=== PATIENT | male | born 1955 | race Caucasian/White ===

== ENCOUNTER 2020-08-20 09:48 | Inpatient (IN) ==
[2020-08-20 10:05] LABS: Basophils # (auto) 0.03 K/uL (0-0.2); Basophils % (auto) 0.3 %; Eosinophils # (auto) 0.02 K/uL (0-0.5); Eosinophils % (auto) 0.2 %; Hematocrit (blood only) 43.7 % (42-52); Hemoglobin 15.9 g/dL (14.0-18.0); Immature Granulocytes # (auto) 0.03 K/uL (0.00-0.02); Immature Granulocytes % (auto) 0.3 %; Lymphocytes % (auto) 31.6 %; Mean Corpuscular Hemoglobin 35.5 pg (25-34); Mean Corpuscular Hgb Conc 36.4 g/dL (32-36); Mean Corpuscular Volume 97.5 fL (80-100); Mean Platelet Volume 11.1 fL (7.4-10.4); Monocytes # (auto) 1.26 K/uL (0.11-0.59); Monocytes % (auto) 11.4 %; Neutrophils # (auto) 6.25 K/uL (1.4-6.5); Neutrophils % (auto) 56.2 %; Platelet Count 283 K/uL (130-400); RDW Coefficient of Variation 13.2 % (11.5-14.5); RDW Standard Deviation 46.7 fL (36.4-46.3); Red Blood Count 4.48 M/uL (4.7-6.1); White Blood Count 11.09 K/uL (4.8-10.8)
[2020-08-20] MEDS ORDERED: MULTI-VITAMIN INFUSION 10 ML, THIAMINE HCL 100 MG, FOLIC ACID 1 MG in SODIUM CHLORIDE 0... IV ONE (10:06)
[2020-08-20] MEDS ORDERED: LORazepam 1 MG/2 ML VIAL IV STA (10:09)
--- NOTE | 2020-08-20 10:09 | Emergency Department Note ---
Impression & Plan Dehydration, Hypomagnesemia, Alteration consciousness, Hypokalemia ED Provider Note NAME: YANY DIAZ AGE: 65 SEX: M : 1955 ARRIVES VIA: Ambulance INFORMANT: Patient, ED PROVIDER(S): Morgan Ordoñez MD Chief Complaint: Confusion, garbled speech HPI: I did receive a medical command call due to concern for the possibility of stroke as the patient's last known well was around 9 AM when he was found on the floor with garbled speech and possible upward gaze. Patient does have a history of hypertension. Patient reportedly was incontinent of urine. BSG was in the 130s, tachycardic in the 130s, pulse ox was 99% 200% on room air. No history of blood thinner use or seizures. No reported trauma. He was given IM Ativan in route. Upon presentation to the emergency department the patient is awake and does follow commands but complains of generalized weakness. He denies any headache, neck pain, chest pain, nausea, vomiting, back pain, or extremity pain. Patient does describe general weakness but states maybe it was more difficult in his lower extremities. The patient does have a remote history of alcohol use based on his medical records. Patient denies any alcohol or drugs but he did smoke tobacco this morning. Patient denies any fevers or chills. ROS: See HPI for pertinent positives and negatives. A total of 10 systems were reviewed and otherwise negative. Past medical history: See below Surgical history: See below Social history: See below Physical Exam: GENERAL: Awake and alert, NAD, non-toxic. EYE EXAM: Normal conjunctiva. PERRL, no anisocoria and EOM's grossly intact w/o pain. Face: Scant abrasion to right chin without TTP. No obvious deformity. OROPHARYNX: Dry mucus membranes. Grossly normal dentition. NECK: Supple, no nuchal rigidity, no adenopathy, non-tender. No signs of meningismus. LUNGS: Clear to auscultation. Normal chest wall mechanics. HEART: NSR, no MRG. ABDOMEN: Abdomen soft, non-tender, normo-active bowel sounds, no masses, no rebound or guarding. BACK: No CVA TTP. SKIN: No rashes and no bruising. UPPER EXTREMITIES: Upper extremities are grossly normal. LOWER EXTREMITIES: Grossly normal, no edema. NEURO EXAM: A&O x3, cranial nerves II-XII grossly intact, normal speech, moves all 4 extremities on command with mild generalized weakness. No sensory deficits. Differential diagnoses: Infection, dehydration, metabolic abnormality, hypo/h yperglycemia, electrolyte disturbance, anemia, hypoxia, cardiac sources, intracerebral event, toxicologic, neurologic, as well as other pathologies. Course: Patient was seen and evaluated the bedside. Full history physical exam was performed. EKG interpreted by me Indication: Weakness Sinus rhythm, rate of 100, normal intervals, normal axis, no obvious ST changes. Imaging Studies: See below Cardiac monitoring: An order was placed for continuous cardiac monitoring. The monitor shows a rate of 100 with sinus rhythm. MDM: Patient was seen due to concern for the possibility of altered mental status. Upon presentation to the emergency department he did have improvement in his mentation does follow commands and answers questions appropriately. The patient had been incontinent of urine. No prior history of seizures. Patient does have a history of alcohol withdrawals the patient was ordered additional Ativan, medical alcohol, banana bag and D5 half. Patient denies any recent alcohol use and states that his alcohol withdrawal was years ago. Patient's EKG shows no obvious ST changes or arrhythmia. Patient does have electrolyte abnormalities including hypomagnesemia and hypoka lemia. These were ordered for repleted. The patient CT head negative. CT angiography of the head neck shows a left 3 mm saccular aneurysm and questionable artifact versus cerebral venous sinus thrombosis. MR brain and MRV were ordered. I did speak with the on-call neurologist Dr. Palmer who re commended the after mentioned MRIs. He stated that if the patient did have a cerebral venous sinus thrombosis to start the patient on heparin as long as its not contraindicated and the patient could be transitioned to Coumadin. He did not recommend any additional treatment/intervention/transfer with regard to the patient's saccular aneurysm of the carotid. He also agreed with loading the patient with Keppra as a precaution given the incontinence and change in mentation. I did speak with the on-call hospitalist Dr. Hart. The patient was admitted to the [facility] medicine service. Critical Care: I have personally spent 55 minutes of critical care time in direct management of this patient. This includes bedside care, interpretation of diagnostic studies, and testing, discussion with consultants, patient, and family members, and other require inpatient management activities. This 55 minutes is in excess of all separately billable procedures. Past Med/Surg History Medical History Alcohol withdrawal HTN (hypertension) Hypokalemia Thrombocytopenia Surgical History No pertinent past surgical history Social History Smoking Status: Unknown if ever smoked Feels Safe at Home: Yes Allergies Allergies Allergy/AdvReac Type Severity Reaction Status Date / Time No Known Allergies Allergy Unverified 06/11/13 10:56 Home Meds Home Medications Medication Instructions Recorded Confirmed hydrochlorothiazide 25 mg PO DAILY 08/20/20 08/20/20 lisinopril 40 mg PO DAILY 08/20/20 08/20/20 Results & Data (ED) Vital Signs Vital Signs - 24 hr 08/20/20 09:50 08/20/20 10:31 08/20/20 10:41 Temperature 36.5 C Temperature Source Temporal Artery Scan Pulse Rate 103 H 101 H 103 H Pulse Rate from SpO2 Sensor 101 H 103 H Respiratory Rate 18 22 17 Respiratory Effort / Characteristics Non-Labored Spontaneous Respiratory Depth Normal Blood Pressure 127/72 102/71 Blood Pressure Mean 90 81 Pulse Oximetry 94 97 94 Oxygen Delivery Method Room Air Sepsis Recent Fever Within 48 Hours No Sepsis New/Unexplained Change in Mental Status No Sepsis Action Taken by Nursing No Action Required 08/20/20 10:50 08/20/20 11:00 Temperature Temperature Source Pulse Rate 104 H 109 H Pulse Rate from SpO2 Sensor 104 H 107 H Respiratory Rate 17 23 Respiratory Effort / Characteristics Respiratory Depth Blood Pressure Blood Pressure Mean Pulse Oximetry 91 90 Oxygen Delivery Method Sepsis Recent Fever Within 48 Hours Sepsis New/Unexplained Change in Mental Status Sepsis Action Taken by [facility] Medications Current Medication List: was personally reviewed by me Laboratory Data Attestation: I reviewed the patient's lab results. Result diagrams: 08/20/20 09:50 08/20/20 09:57 Lab Results 08/20/20 08/20/20 08/20/20 Range/Units 09:50 09:50 09:50 WBC 11.09 H (4.8-10.8) K/uL RBC 4.48 L (4.7-6.1) M/uL Hgb 15.9 (14.0-18.0) g/dL Hct 43.7 (42-52) % MCV 97.5 (80-100) fL MCH 35.5 H (25-34) pg MCHC 36.4 H (32-36) g/dL RDW Std Deviation 46.7 H (36.4-46.3) fL RDW Coeff of Vivi 13.2 (11.5-14.5) % Plt Count 283 (130-400) K/uL MPV 11.1 H (7.4-10.4) fL Immature Gran % (Auto) 0.3 % Neut % (Auto) 56.2 % Lymph % (Auto) 31.6 % Cabell % (Auto) 11.4 % Eos % (Auto) 0.2 % Baso % (Auto) 0.3 % Neut # (Auto) 6.25 (1.4-6.5) K/uL Lymph # (Auto) 3.50 H (1.2-3.4) K/uL Cabell # (Auto) 1.26 H (0.11-0.59) K/uL Eos # (Auto) 0.02 (0-0.5) K/uL Baso # (Auto) 0.03 (0-0.2) K/uL Immature Gran # (Auto) 0.03 H (0.00-0.02) K/uL PT 10.6 (9.0-12.0) Seconds INR 1.0 (0.9-1.1) APTT 24.2 (21.0-31.0) Seconds PTT Ratio 0.9 Sodium (136-145) mmol/L Potassium (3.5-5.1) mmol/L Chloride (98-107) mmol/L Carbon Dioxide (21-32) mmol/L Anion Gap (3-11) BUN (7-18) mg/dl Creatinine (0.6-1.4) mg/dl Est Cr Clr Drug Dosing Est GFR ( Amer) Est GFR (Non-Af Amer) BUN/Creatinine Ratio (10-20) Glucose (70-99) mg/dl POC Glucose (70-99) mg/dl Calcium (8.5-10.1) mg/dl Phosphorus (2.5-4.9) mg/dl Magnesium (1.8-2.4) mg/dl Total Bilirubin (0.2-1) mg/dl AST (15-37) U/L ALT (12-78) U/L Alkaline Phosphatase (45-117) U/L Troponin I (0-0.045) ng/ml Total Protein (6.4-8.2) gm/dl Albumin (3.4-5.0) gm/dl Globulin (2.5-4.0) gm/dl Albumin/Globulin Ratio (0.9-2) Ethyl Alcohol mg/dL (0-3) mg/dl Blood Type O Positive Antibody Screen NEGATIVE 08/20/20 08/20/20 08/20/20 Range/Units 09:50 09:50 09:57 WBC (4.8-10.8) K/uL RBC (4.7-6.1) M/uL Hgb (14.0-18.0) g/dL Hct (42-52) % MCV (80-100) fL MCH (25-34) pg MCHC (32-36) g/dL RDW Std Deviation (36.4-46.3) fL RDW Coeff of Vivi (11.5-14.5) % Plt Count (130-400) K/uL MPV (7.4-10.4) fL Immature Gran % (Auto) % Neut % (Auto) % Lymph % (Auto) % Cabell % (Auto) % Eos % (Auto) % Baso % (Auto) % Neut # (Auto) (1.4-6.5) K/uL Lymph # (Auto) (1.2-3.4) K/uL Cabell # (Auto) (0.11-0.59) K/uL Eos # (Auto) (0-0.5) K/uL Baso # (Auto) (0-0.2) K/uL Immature Gran # (Auto) (0.00-0.02) K/uL PT (9.0-12.0) Seconds INR (0.9-1.1) APTT (21.0-31.0) Seconds PTT Ratio Sodium 131 L (136-145) mmol/L Potassium 2.3 L* 2.4 L* (3.5-5.1) mmol/L Chloride 92 L (98-107) mmol/L Carbon Dioxide 28 (21-32) mmol/L Anion Gap 11.0 (3-11) BUN 8 (7-18) mg/dl Creatinine 1.15 (0.6-1.4) mg/dl Est Cr Clr Drug Dosing Not Reportable Est GFR ( Amer) 78.1 Est GFR (Non-Af Amer) 67.4 BUN/Creatinine Ratio 6.5 L (10-20) Glucose 132 H (70-99) mg/dl POC Glucose (70-99) mg/dl Calcium 10.4 H (8.5-10.1) mg/dl Phosphorus 1.3 L* (2.5-4.9) mg/dl Magnesium 0.5 L* 0.5 L* (1.8-2.4) mg/dl Total Bilirubin 0.9 (0.2-1) mg/dl AST 59 H (15-37) U/L ALT 65 (12-78) U/L Alkaline Phosphatase 80 (45-117) U/L Troponin I < 0.015 (0-0.045) ng/ml Total Protein 7.4 (6.4-8.2) gm/dl Albumin 3.3 L (3.4-5.0) gm/dl Globulin 4.1 H (2.5-4.0) gm/dl Albumin/Globulin Ratio 0.8 L (0.9-2) Ethyl Alcohol mg/dL (0-3) mg/dl Blood Type Antibody Screen 08/20/20 08/20/20 Range/Units 10:13 10:51 WBC (4.8-10.8) K/uL RBC (4.7-6.1) M/uL Hgb (14.0-18.0) g/dL Hct (42-52) % MCV (80-100) fL MCH (25-34) pg MCHC (32-36) g/dL RDW Std Deviation (36.4-46.3) fL RDW Coeff of Vivi (11.5-14.5) % Plt Count (130-400) K/uL MPV (7.4-10.4) fL Immature Gran % (Auto) % Neut % (Auto) % Lymph % (Auto) % Cabell % (Auto) % Eos % (Auto) % Baso % (Auto) % Neut # (Auto) (1.4-6.5) K/uL Lymph # (Auto) (1.2-3.4) K/uL Cabell # (Auto) (0.11-0.59) K/uL Eos # (Auto) (0-0.5) K/uL Baso # (Auto) (0-0.2) K/uL Immature Gran # (Auto) (0.00-0.02) K/uL PT (9.0-12.0) Seconds INR (0.9-1.1) APTT (21.0-31.0) Seconds PTT Ratio Sodium (136-145) mmol/L Potassium (3.5-5.1) mmol/L Chloride (98-107) mmol/L Carbon Dioxide (21-32) mmol/L Anion Gap (3-11) BUN (7-18) mg/dl Creatinine (0.6-1.4) mg/dl Est Cr Clr Drug Dosing Est GFR ( Amer) Est GFR (Non-Af Amer) BUN/Creatinine Ratio (10-20) Glucose (70-99) mg/dl POC Glucose 140 H (70-99) mg/dl Calcium (8.5-10.1) mg/dl Phosphorus (2.5-4.9) mg/dl Magnesium (1.8-2.4) mg/dl Total Bilirubin (0.2-1) mg/dl AST (15-37) U/L ALT (12-78) U/L Alkaline Phosphatase (45-117) U/L Troponin I (0-0.045) ng/ml Total Protein (6.4-8.2) gm/dl Albumin (3.4-5.0) gm/dl Globulin (2.5-4.0) gm/dl Albumin/Globulin Ratio (0.9-2) Ethyl Alcohol mg/dL < 3.0 (0-3) mg/dl Blood Type Antibody Screen Administered Medications Potassium Chloride/Sodium Chloride (Normal Saline W/20 Meq Kcl) 20 meq in 1,000 mls @ 100 mls/hr IV .Q10H [facility] Stop: 08/21/20 08:14 Last Admin: 08/20/20 13:55 Dose: 100 mls/hr Documented by: [id number] Discontinued Medications Multivitamins 10 ml/ Thiamine HCl 100 mg/ Folic Acid 1 mg/Sodium Chloride 1,011.2 mls @ 1,011.2 mls/hr IV .Q1H ONE Stop: 08/20/20 11:05 Last Infusion: 08/20/20 12:25 Dose: 0 mls/hr Documented by: [id number] Admin: 08/20/20 11:02 Dose: 1,011.2 mls/hr Documented by: [id number] Dextrose/Sodium Chloride (D5w And 1/2nss) 1,000 mls @ 125 mls/hr IV .Q8H [place] Stop: 09/19/20 10:14 Last Infusion: 08/20/20 13:57 Dose: 0 mls/hr Documented by: [id number] Admin: 08/20/20 12:19 Dose: 125 mls/hr Documented by: [id number] Lorazepam (Ativan) 1 mg in 2 mls @ 2 mls/min IV NOW STA Stop: 08/20/20 10:10 Last Admin: 08/20/20 10:14 Dose: 2 mls/min Documented by: [id number] Magnesium Sulfate/Dextrose (Magnesium Sulfate / D5w) 1 gm in 100 mls @ 400 mls/hr IV Q15M [facility] Stop: 08/20/20 10:38 Last Admin: 08/20/20 12:12 Dose: Not Given Documented by: [id number] Potassium Chloride (K Darion / Wtr) 10 meq in 100 mls @ 100 mls/hr IV Q1H [facility] Stop: 08/20/20 12:29 Last Infusion: 08/20/20 13:56 Dose: 0 mls/hr Documented by: [id number] Admin: 08/20/20 12:09 Dose: 100 mls/hr Documented by: [id number] Infusion: 08/20/20 12:02 Dose: 100 mls/hr Documented by: [id number] Admin: 08/20/20 11:02 Dose: 100 mls/hr Documented by: [id number] Magnesium Sulfate/Dextrose (Magnesium Sulfate / D5w) 1 gm in 100 mls @ 200 mls/hr IV Q30M [facility] Stop: 08/20/20 11:44 Last Infusion: 08/20/20 12:25 Dose: 0 mls/hr Documented by: [id number] Admin: 08/20/20 11:39 Dose: 200 mls/hr Documented by: [id number] Infusion: 08/20/20 11:32 Dose: 200 mls/hr Documented by: [id number] Admin: 08/20/20 11:02 Dose: 200 mls/hr Documented by: [id number] Levetiracetam 1,500 mg/ Sodium (Chloride) 115 mls @ 440 mls/hr IV NOW STA Stop: 08/20/20 11:32 Last Infusion: 08/20/20 13:56 Dose: 0 mls/hr Documented by: [id number] Admin: 08/20/20 12:18 Dose: 440 mls/hr Documented by: [id number] Potassium Chloride (K Darion / Wtr) 10 meq in 100 mls @ 100 mls/hr IV Q1H [place] Stop: 08/20/20 14:59 Last Admin: 08/20/20 16:23 Dose: 100 mls/hr Documented by: [id number] Infusion: 08/20/20 16:15 Dose: 100 mls/hr Documented by: [id number] Admin: 08/20/20 15:15 Dose: 100 mls/hr Documented by: [id number] Ioversol (Optiray 350 500ml) 120 ml IV ONCE ONE Stop: 08/20/20 10:19 Last Admin: 08/20/20 10:18 Dose: 120 ml Documented by: [id number] Imaging Data Radiologist's Impression: Head CT 08/20/20 09:40 CT head/brain wo con CLINICAL HISTORY: 65 years-old Male with Stroke Like Symptoms. Acute stroke like symptoms TECHNIQUE: Multiple axial CT images of the head were obtained without contrast. A dose lowering technique was utilized adhering to the principles of ALARA. COMPARISON: None FINDINGS: Motion degraded exam. No acute intracranial hemorrhage, midline shift, intracranial mass, hydrocephalus, territorial ischemia or abnormal extra-axial collection. Age-related involutional changes. Cerebral vascular calcifications. The calvarium is intact. Mild mucosal thickening of the ethmoid air cells. The orbits are only partially imaged. Developmental incomplete bony fusion involves the posterior arch of C1. IMPRESSION: Motion degraded exam without acute intracranial abnormality identified. ACT 112: Negative or not required by law. The above report was generated using voice recognition software. It may contain grammatical, syntax or spelling errors. Electronically signed by: Sukhwinder Ramirez M.D. 08/20/2020 10:16 AM Head CTA 08/20/20 09:40 CT angio neck with con, CT angio head w con CLINICAL HISTORY: 65 years-old Male with Stroke Like Symptoms. Acutely altered mental status COMPARISON STUDY: Head CT of same day TECHNIQUE: Following the IV administration of 120 mL of Optiray, CT angiogram of the 100 and was performed from the aortic arch to the skull apex. Images are reviewed in the axial, sagittal, and coronal planes. 3-D MIPS images are created and assessed. IV contrast was administered without complication. All measurements were calculated based on NASCET criteria. A dose lowering technique was utilized adhering to the principles of ALARA. CT DOSE: 2187.62 mGy.cm FINDINGS: Three-vessel morphology of the thoracic aortic arch. Patency of the innominate and imaged subclavian arteries. The common carotid arteries are patent. There is moderate mixed plaque of the carotid bulbs and proximal internal carotid arteries without high-grade stenosis. Calcified plaque of the cavernous and supraclinoid segments without high-grade stenosis. Millimeter saccular aneurysm involves the posterolateral aspect of the carotid terminus on image 129 series 9. There is mild multifocal luminal narrowing of the middle and anterior cerebral arteries without high-grade stenosis. The vertebral arteries are codominant and widely patent. The basilar and posterior cerebral arteries are patent. There is diminished flow within the right transverse and sigmoid sinuses and posterior aspect of the superior sagittal sinus. No abnormal intracranial enhancement. IMPRESSION: 1. 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 2. No dissection, high-grade stenosis or arterial occlusion identified. 3. Asymmetric flow within the right transverse and sigmoid sinuses and posterior aspect of the superior sagittal sinus may represent mixing artifact versus cerebral venous sinus thrombosis. ACT 112: Negative or not required by law. The above report was generated using voice recognition software. It may contain grammatical, syntax or spelling errors. Electronically signed by: Sukhwinder Ramirez M.D. 08/20/2020 10:59 AM Neck CTA 08/20/20 09:40 CT angio neck with con, CT angio head w con CLINICAL HISTORY: 65 years-old Male with Stroke Like Symptoms. Acutely altered mental status COMPARISON STUDY: Head CT of same day TECHNIQUE: Following the IV administration of 120 mL of Optiray, CT angiogram of the 100 and was performed from the aortic arch to the skull apex. Images are reviewed in the axial, sagittal, and coronal planes. 3-D MIPS images are created and assessed. IV contrast was administered without complication. All measurements were calculated based on NASCET criteria. A dose lowering technique was utilized adhering to the principles of ALARA. CT DOSE: 2187.62 mGy.cm FINDINGS: Three-vessel morphology of the thoracic aortic arch. Patency of the innominate and imaged subclavian arteries. The common carotid arteries are patent. There is moderate mixed plaque of the carotid bulbs and proximal internal carotid a rteries without high-grade stenosis. Calcified plaque of the cavernous and supraclinoid segments without high-grade stenosis. Millimeter saccular aneurysm involves the posterolateral aspect of the carotid terminus on image 129 series 9. There is mild multifocal luminal narrowing of the middle and anterior cerebral arteries without high-grade stenosis. The vertebral arteries are codominant and widely patent. The basilar and posterior cerebral arteries are patent. There is diminished flow within the right transverse and sigmoid sinuses and posterior aspect of the superior sagittal sinus. No abnormal intracranial enhancement. IMPRESSION: 1. 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 2. No dissection, high-grade stenosis or arterial occlusion identified. 3. Asymmetric flow within the right transverse and sigmoid sinuses and posterior aspect of the superior sagittal sinus may represent mixing artifact versus cerebral venous sinus thrombosis. ACT 112: Negative or not required by law. The above report was generated using voice recognition software. It may contain grammatical, syntax or spelling errors. Electronically signed by: Sukhwinder Ramirez M.D. 08/20/2020 10:59 AM Chest X-Ray 08/20/20 10:24 XR chest 1V portable HISTORY: 65 years-old Male confusion acutely altered mental status with confusion COMPARISON: Chest radiograph 06/11/2013 TECHNIQUE: Portable AP view of the chest FINDINGS: Cardiomediastinal and hilar silhouettes are within normal limits. The patient is mildly rotated towards the left. Unchanged pleural thickening of the lung apices. No pneumothorax, pleural effusion, airspace consolidation or overt pulmonary edema. Ill-defined 2.0 cm opacity of the left upper lung peripherally. Degenerative changes of the shoulders and spine. IMPRESSION: 1. No acute process. 2. Ill-defined 2.0 cm opacity of the lateral left upper lung favored to be secondary to summation density. A pulmonary nodule considered less likely. ACT 112: Negative or not required by law. The above report was generated using voice recognition software. It may contain grammatical, syntax or spelling errors. Electronically signed by: Sukhwinder Ramirez M.D. 08/20/2020 10:35 AM Discharge Plan Visit Data Chief Complaint: Stroke Alert Stated Complaint: STROKE ALERT ED Provider: Morgan Ordoñez Discharge Problem: Dehydration, Hypomagnesemia, Alteration consciousness, Hypokalemia Patient Disposition: Admitted As Inpatient Discharge Instructions Interventions: ED Discharge Assessment Last Done: 08/20/20 13:36
[2020-08-20 10:15] LABS: Partial Thromboplastin Ratio 0.9; Partial Thromboplastin Time 24.2 Seconds (21.0-31.0); Prothrombin Time 10.6 Seconds (9.0-12.0)
[2020-08-20] MEDS ORDERED: D5W AND 1/2NSS 1,000 ML IV SCH (10:15)
[2020-08-20] MEDS ORDERED: OPTIRAY 350 500ml IV ONE (10:18)
--- NOTE | 2020-08-20 10:18 | CT Scan Report ---
CT head/brain wo con CLINICAL HISTORY: 65 years-old Male with Stroke Like Symptoms. Acute stroke like symptoms TECHNIQUE: Multiple axial CT images of the head were obtained without contrast. A dose lowering tech nique was utilized adhering to the principles of ALARA. COMPARISON: None FINDINGS: Motion degraded exam. No acute intracranial hemorrhage, midline shift, intracranial mass, hydrocephal us, territorial ischemia or abnormal extra-axial collection. Age-related involutional changes. Cerebr al vascular calcifications. The calvarium is intact. Mild mucosal thickening of the ethmoid air cells. The orbits are only parti ally imaged. Developmental incomplete bony fusion involves the posterior arch of C1. IMPRESSION: Motion degraded exam without acute intracranial abnormality identified. ACT 112: Negative or not required by law. The above report was generated using voice recognition software. It may contain grammatical, syntax o r spelling errors. Electronically signed by: Sukhwinder Ramirez M.D. 08/20/2020 10:16 AM
[2020-08-20 10:23] LABS: Alanine Aminotransferase 65 U/L (12-78); Albumin Level 3.3 gm/dl (3.4-5.0); Aspartate Aminotransferase 59 U/L (15-37); BUN Creatinine Ratio 6.5 (10-20); Blood Urea Nitrogen 8 mg/dl (7-18); Calcium 10.4 mg/dl (8.5-10.1); Carbon Dioxide 28 mmol/L (21-32); Chloride 92 mmol/L (98-107); Est GFR (African American) 78.1; Est GFR (Non-African American) 67.4; Glucose 132 mg/dl (70-99); Magnesium 0.5 mg/dl (1.8-2.4); Potassium 2.3 mmol/L (3.5-5.1); Sodium 131 mmol/L (136-145)
[2020-08-20] MEDS ORDERED: MAGNESIUM SULFATE / D5W 1 GM/100 ML BAG IV ONE (10:24)
[2020-08-20] MEDS ORDERED: MAGNESIUM SULFATE / D5W 1 GM/100 ML BAG IV SCH ×2 (10:24→10:45)
[2020-08-20] MEDS ORDERED: MAGNESIUM SULFATE / D5W 1 GM/100 ML BAG IV STA (10:25)
[2020-08-20 10:29] LABS: Albumin Globulin Ratio 0.8 (0.9-2); Alkaline Phosphatase 80 U/L (45-117); Bilirubin,Total 0.9 mg/dl (0.2-1); Globulin 4.1 gm/dl (2.5-4.0); Total Protein 7.4 gm/dl (6.4-8.2); Troponin I < 0.015 ng/ml (0-0.045)
--- NOTE | 2020-08-20 10:36 | XRay Report ---
XR chest 1V portable HISTORY: 65 years-old Male confusion acutely altered mental status with confusion COMPARISON: Chest radiograph 06/11/2013 TECHNIQUE: Portable AP view of the chest FINDINGS: Cardiomediastinal and hilar silhouettes are within normal limits. The patient is mildly rotated towar ds the left. Unchanged pleural thickening of the lung apices. No pneumothorax, pleural effusion, airs pace consolidation or overt pulmonary edema. Ill-defined 2.0 cm opacity of the left upper lung periph erally. Degenerative changes of the shoulders and spine. IMPRESSION: 1. No acute process. 2. Ill-defined 2.0 cm opacity of the lateral left upper lung favored to be secondary to summation den sity. A pulmonary nodule considered less likely. ACT 112: Negative or not required by law. The above report was generated using voice recognition software. It may contain grammatical, syntax o r spelling errors. Electronically signed by: Sukhwinder Ramirez M.D. 08/20/2020 10:35 AM
--- NOTE | 2020-08-20 11:00 | CT Scan Report ---
CT angio neck with con, CT angio head w con CLINICAL HISTORY: 65 years-old Male with Stroke Like Symptoms. Acutely altered mental status COMPARISON STUDY: Head CT of same day TECHNIQUE: Following the IV administration of 120 mL of Optiray, CT angiogram of the 100 and was perf ormed from the aortic arch to the skull apex. Images are reviewed in the axial, sagittal, and coronal planes. 3-D MIPS images are created and assessed. IV contrast was administered without complication. All measurements were calculated based on NASCET criteria. A dose lowering technique was utilized a dhering to the principles of ALARA. CT DOSE: 2187.62 mGy.cm FINDINGS: Three-vessel morphology of the thoracic aortic arch. Patency of the innominate and imaged subclavian arteries. The common carotid arteries are patent. There is moderate mixed plaque of the carotid bulbs and proximal internal carotid arteries without high-grade stenosis. Calcified plaque of the cavernou s and supraclinoid segments without high-grade stenosis. Millimeter saccular aneurysm involves the po sterolateral aspect of the carotid terminus on image 129 series 9. There is mild multifocal luminal n arrowing of the middle and anterior cerebral arteries without high-grade stenosis. The vertebral erlin clarissa are codominant and widely patent. The basilar and posterior cerebral arteries are patent. There is diminished flow within the right transverse and sigmoid sinuses and posterior aspect of the superi or sagittal sinus. No abnormal intracranial enhancement. IMPRESSION: 1. 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 2. No dissection, high-grade stenosis or arterial occlusion identified. 3. Asymmetric flow within the right transverse and sigmoid sinuses and posterior aspect of the superi or sagittal sinus may represent mixing artifact versus cerebral venous sinus thrombosis. ACT 112: Negative or not required by law. The above report was generated using voice recognition software. It may contain grammatical, syntax o r spelling errors. Electronically signed by: Sukhwinder Ramirez M.D. 08/20/2020 10:59 AM
[2020-08-20] MEDS: POTASSIUM CHLORIDE / WTR 10 MEQ/100 ML PLCT IV SCH ×4 (11:02→16:23)
[2020-08-20] MEDS: MAGNESIUM SULFATE / D5W 1 GM/100 ML BAG IV SCH ×2 (11:02→11:39)
[2020-08-20] MEDS ORDERED: POLYETHYLENE (MIRALAX) 17 GM PACK PO PRN (11:07)
[2020-08-20] MEDS ORDERED: ONDANSETRON INJ 2 MG/ML 2 ML VIAL IV PRN (11:07)
[2020-08-20] MEDS ORDERED: ALUMINUM/MAGNESIUM SUSP 30 ML UDC PO PRN (11:07)
[2020-08-20] MEDS ORDERED: MAGNESIUM HYDROXIDE SUSP 30 ML UDC PO PRN (11:07)
[2020-08-20] MEDS ORDERED: ACETAMINOPHEN 325 MG TAB PO PRN (11:07)
[2020-08-20] MEDS ORDERED: NITROGLYCERIN SL 0.4 MG/TAB TAB SL PRN (11:07)
--- NOTE | 2020-08-20 11:10 | History & Physical Report ---
Date of Service August 20, 2020 Assessment & Plan (1) Seizure-like activity: Noted with confusion/altered mental status: Metabolic encephalopathy possible in setting of electrolyte imbalance causing seizure Presented with with seizure-like activity, garbled speech, unresponsiveness, with urinary incontinence No prior history of seizure, Rule out acute stroke, illicit drug/alcohol withdrawal Significant electrolyte imbalance noted: Low mag, potassium, phosphorus, ordered for IV replacement, repeat lab in the afternoon pt will be admitted to telemetry floor, already ordered loading dose of IV Keppra, will consult neurology and continue with antiseizure medication as per r ecommendation Seizure precaution, EEG in a.m. Patient will be seen by [facility] neurology, case discussed with Dr. Rose by ER attending already (2) Abnormal CT of brain: CT of head neck shows a possible intracranial venous thrombosis MRI/MRV of brain ordered report pending If MRI confirms sigmoid venous thrombosis, patient will be started with IV hepa rin, bridge therapy, will need to be on the Coumadin for chronic anticoagulation We will check echocardiogram, hypercoagulable status /extremity Doppler to assess risk for venous thrombosis and propagation Neurology consulted already (3) Electrolyte imbalance: pt noted to have severely hypokalemic, low magnesium, hyponatremic Replacement ordered, Check for alcohol withdrawal alcohol abuse Electrolytes closely, monitoring telemetry Code status: Full code DVT prophylaxis: Disposition: Expected to be discharged home when medically stable PT OT evaluation prior to discharge, Follows with Dr. Gunter at [facility] Will need to establish care with [facility] neurology History of Present Illness Chief Complaint: Altered mental status/seizure-like activity Primary Care Provider: Farideh Sandoval DO This is a 67-year-old male with no significant past medical history, Brought to ER with altered mental status Patient was last known well was around 9 AM Then was found on floor with garbled speech and upward gaze Was incontinent of urine EMS arrived, BSG was 130s, patient was tachycardic in 130s, pulse ox was 99/100% in room air No prior history of seizure In the ER patient was awake, but appears to be postictal, complains of generalized weakness Remote history of alcohol abuse: Denies of any recent alcohol intake or drug abuse, Patient noted to be in significant electrolyte imbalance, with marked hypokalemia, low magnesium 0.5, hyponatremia CT head noncontrast no acute change, CTA of head and neck suggestive of sigmoid venous thrombosis, MRI MRV of brain ordered ER attending spoke with on-call neurologist Dr. Rose Patient will be treated with IV Keppra 1 g load If MRI of brain confirms evidence of intracranial venous sinus thrombosis, patient will be started with IV heparin later transitioned to Coumadin for long- term anticoagulation Allergies Allergy/AdvReac Type Severity Reaction Status Date / Time No Known Allergies Allergy Unverified 06/11/13 10:56 Home Medications Medication Instructions Recorded Confirmed Type hydrochlorothiazide 25 mg PO DAILY 08/20/20 08/20/20 History lisinopril 40 mg PO DAILY 08/20/20 08/20/20 History Past Med/Surg History Medical History Alcohol withdrawal HTN (hypertension) Hypokalemia Thrombocytopenia Surgical History No pertinent past surgical history Social History Smoking Status: Current every day smoker Cigarettes Per Day: 1 PPD; Second Hand Exposure: Yes (room mate also smokes.); Do You Dip or Chew Tobacco: No; Tobacco Cessation Education Requested by Patient: No Hx Alcohol Use: Yes Alcohol type: beer Hx Substance Use: No Preferred Language: [place]ese Communication Ability: Effective Merchandise Carrier Required: No Beliefs That Will Affect Care: None Current Living Situation: Alone Current Living Situation Comment: lives with female friend. Other Information That Helps Us Care for You: No Feels Safe at Home: Yes Safety Concerns: Feels Safe At This Time Assistive Devices: None Review of Systems Review of Systems: Unobtainable due to reduced consciousness Physical Exam Physical Exam: Physical exam: General: Still remains a little bit disoriented, postictal, awake, oriented to person only HEENT: Normal visuals failed, pupils equal reactive to light Heart: Regular S1-S2, no carotid bruit, no JVD, no lower extremity edema Lungs: Clear to auscultate, no wheeze or rales Abdomen: Soft nontender, no organomegaly Extremity: No cyanosis, no deformity, Neuro: No focal neurological deficit normal speech, tongue midline, muscle strength both upper and lower extremity, normal sensation, no seizure-like activity Psych: Remains confused, alert and awake, oriented to person only, Results & Data Results & Data ([facility]) Vital Signs (Past 12 Hours) Vital Signs Temp Pulse Resp BP Pulse Ox 08/20/20 09:50 36.5 C 103 H 18 127/72 94 Code Status & VTE Plan VTE Prophylaxis Plan VTE Prophylaxis will be ordered: Yes
[2020-08-20] MEDS ORDERED: levETIRAcetam 1,500 MG in 0.9 % SODIUM CHLORIDE 100 ML IV STA (11:18)
[2020-08-20 11:54] LABS: Appearance Urine Clear (Clear); Bacteria Urine Automated Negative (Negative); Bilirubin Urine Negative (Negative); Blood Urine Trace (Negative); Color Urine Yellow; Glucose Urine UA Negative (Negative); Ketones Urine Negative (Negative); Leukocyte Esterase Urine Negative (Negative); Nitrite Urine Negative (Negative); Protein Urine Trace (Negative); RBC Urine Automated 0-4 /hpf (0-4); Specific Gravity Urine > 1.045 (1.000-1.030); Urobilinogen Urine Negative (Negative)
[2020-08-20 12:06] LABS: Influenza A virus by PCR Negative (Neg); Influenza B virus by PCR Negative (Neg); RSV by PCR Negative (Neg); SARS CoV2 RNA(COVID-19) InHosp NEGATIVE (Negative)
[2020-08-20 12:19] LABS: Amphetamines+Metham, Urine Neg (Neg); Barbiturates, Urine Neg (Neg); Benzodiazepine, Urine Neg (Neg); Cocaine, Urine Neg (Neg); MDMA (Ecstacy), Urine Neg (Neg); Methadone, Urine Neg (Neg); Opiate, Urine Neg (Neg); Phencyclidine, Urine Neg (Neg)
[2020-08-20] MEDS: NSS + 20MEQ KCL 20 MEQ/1,000 ML BAG IV SCH (13:55)
[2020-08-20 15:16] LABS: Magnesium 0.5 mg/dl (1.8-2.4); Potassium 2.4 mmol/L (3.5-5.1)
[2020-08-20] MEDS ORDERED: POTASSIUM PHOS 3 MMOL/1 ML INFUSION IV STA (15:31)
[2020-08-20] MEDS ORDERED: POTASSIUM PHOSPHATE 9 MMOL in SODIUM CHLORIDE 0.9% 250 ML IV ONE (16:00)
--- NOTE | 2020-08-20 22:49 | Electrocardiogram Report ---
Test Reason : Blood Pressure : / mmHG Vent. Rate : 100 BPM Atrial Rate : 100 BPM P-R Int : 168 ms QRS Dur : 090 ms QT Int : 370 ms P-R-T Axes : 072 029 036 degrees QTc Int : 477 ms Normal sinus rhythm Normal ECG When compared with ECG of 12-JUL-2013 07:38, No significant change Confirmed by Javier Lopez ([id number]) on 08/20/2020 10:49:09 PM Referred By: REFERRED SELF Confirmed By:Javier Lopez
[2020-08-21] MEDS: NSS + 20MEQ KCL 20 MEQ/1,000 ML BAG IV SCH (02:17)
[2020-08-21 06:53] LABS: Hematocrit (blood only) 36.7 % (42-52); Hemoglobin 13.1 g/dL (14.0-18.0); Mean Corpuscular Hemoglobin 34.9 pg (25-34); Mean Corpuscular Hgb Conc 35.7 g/dL (32-36); Mean Corpuscular Volume 97.9 fL (80-100); Platelet Count 232 K/uL (130-400); RDW Coefficient of Variation 13.2 % (11.5-14.5); RDW Standard Deviation 46.8 fL (36.4-46.3); Red Blood Count 3.75 M/uL (4.7-6.1); White Blood Count 7.02 K/uL (4.8-10.8)
[2020-08-21 07:34] LABS: BUN Creatinine Ratio 13.8 (10-20); Calcium 8.9 mg/dl (8.5-10.1); Creatinine Clr Calc Pharmacy 126.2 ml/min; Est GFR (African American) 127.6; Est GFR (Non-African American) 110.1; Phosphorus 2.4 mg/dl (2.5-4.9); Potassium 2.4 mmol/L (3.5-5.1)
--- NOTE | 2020-08-21 08:46 | Electroencephalogram ---
EEG Procedure Note Date of Service August 21, 2020 Start / End Times Start Time: 07:20 End Time: 07:[address] Halina Hart History A 65-year-old male with new onset seizure. EEG performed for evaluation epileptiform activity. Home Medication List Medication Instructions Recorded Confirmed Type hydrochlorothiazide 25 mg PO DAILY 08/20/20 08/20/20 History lisinopril 40 mg PO DAILY 08/20/20 08/20/20 History Inpatient Medication List Discontinued Medications Multivitamins 10 ml/ Thiamine HCl 100 mg/ Folic Acid 1 mg/Sodium Chloride 1,011.2 mls @ 1,011.2 mls/hr IV .Q1H ONE Stop: 08/20/20 11:05 Last Infusion: 08/20/20 12:25 Dose: 0 mls/hr Documented by: [id number] Admin: 08/20/20 11:02 Dose: 1,011.2 mls/hr Documented by: [id number] Dextrose/Sodium Chloride (D5w And 1/2nss) 1,000 mls @ 125 mls/hr IV .Q8H CHEVY Stop: 09/19/20 10:14 Last Infusion: 08/20/20 13:57 Dose: 0 mls/hr Documented by: [id number] Admin: 08/20/20 12:19 Dose: 125 mls/hr Documented by: [id number] Lorazepam (Ativan) 1 mg in 2 mls @ 2 mls/min IV NOW STA Stop: 08/20/20 10:10 Last Admin: 08/20/20 10:14 Dose: 2 mls/min Documented by: [id number] Magnesium Sulfate/Dextrose (Magnesium Sulfate / D5w) 1 gm in 100 mls @ 400 mls/hr IV Q15M CHEVY Stop: 08/20/20 10:38 Last Admin: 08/20/20 12:12 Dose: Not Given Documented by: [id number] Potassium Chloride (K Darion / Wtr) 10 meq in 100 mls @ 100 mls/hr IV Q1H [place] Stop: 08/20/20 12:29 Last Infusion: 08/20/20 13:56 Dose: 0 mls/hr Documented by: [id number] Admin: 08/20/20 12:09 Dose: 100 mls/hr Documented by: [id number] Infusion: 08/20/20 12:02 Dose: 100 mls/hr Documented by: [id number] Admin: 08/20/20 11:02 Dose: 100 mls/hr Documented by: [id number] Magnesium Sulfate/Dextrose (Magnesium Sulfate / D5w) 1 gm in 100 mls @ 200 mls/hr IV Q30M [place] Stop: 08/20/20 11:44 Last Infusion: 08/20/20 12:25 Dose: 0 mls/hr Documented by: [id number] Admin: 08/20/20 11:39 Dose: 200 mls/hr Documented by: [id number] Infusion: 08/20/20 11:32 Dose: 200 mls/hr Documented by: [id number] Admin: 08/20/20 11:02 Dose: 200 mls/hr Documented by: [id number] Potassium Chloride/Sodium Chloride (Normal Saline W/20 Meq Kcl) 20 meq in 1,000 mls @ 100 mls/hr IV .Q10H [place] Stop: 08/21/20 08:14 Last Admin: 08/21/20 02:17 Dose: 100 mls/hr Documented by: [id number] Infusion: 08/20/20 23:55 Dose: 100 mls/hr Documented by: [id number] Admin: 08/20/20 13:55 Dose: 100 mls/hr Documented by: [id number] Levetiracetam 1,500 mg/ Sodium (Chloride) 115 mls @ 440 mls/hr IV NOW [facility] Stop: 08/20/20 11:32 Last Infusion: 08/20/20 13:56 Dose: 0 mls/hr Documented by: [id number] Admin: 08/20/20 12:18 Dose: 440 mls/hr Documented by: [id number] Potassium Chloride (K Darion / Wtr) 10 meq in 100 mls @ 100 mls/hr IV Q1H [place] Stop: 08/20/20 14:59 Last Infusion: 08/20/20 18:43 Dose: 0 mls/hr Documented by: [id number] Admin: 08/20/20 16:23 Dose: 100 mls/hr Documented by: [id number] Infusion: 08/20/20 16:15 Dose: 100 mls/hr Documented by: [id number] Admin: 08/20/20 15:15 Dose: 100 mls/hr Documented by: [id number] Potassium Phosphate 9 mmol/ (Sodium Chloride) 253 mls @ 88 mls/hr IV ONE ONE Stop: 08/20/20 18:52 Last Infusion: 08/20/20 20:05 Dose: 0 mls/hr Documented by: [id number] Admin: 08/20/20 16:43 Dose: 88 mls/hr Documented by: [id number] Ioversol (Optiray 350 500ml) 120 ml IV ONCE ONE Stop: 08/20/20 10:19 Last Admin: 08/20/20 10:18 Dose: 120 ml Documented by: [id number] Description This is a 21 electrode EEG with a single channel dedicated to limited EKG. The electrodes were placed in accordance with the International 10-20 system. REPORT: At the onset of the EEG, the patient is awake. The background Is symmetric. The posterior dominant rhythm is not well seen during this recording. Instead, the background consist of predominantly low amplitude 10- 20 uV beta activity. Stepwise intermittent photic stimulation (1-21 Hz) does not induce any abnormalities. Hyperventilation is not performed. Drowsiness is characterized by low amplitude mixed frequency activity, roving eye movements, and decreased eye blinking and muscle artifact. Stage II sleep is characterized by sleep spindles, vertex waves, and K complexes. IMPRESSION: This is a normal awake and drowsy routine EEG. Excessive beta activity is a normal variant and can be seen as a medication effect, ie benzodiazepines. There is no evidence of epileptiform activity.
[2020-08-21] MEDS ORDERED: POTASSIUM CHLORIDE CRTAB 20 MEQ TABCR PO STA (09:11)
--- NOTE | 2020-08-21 10:38 | Consultation Report ---
DATE OF CONSULTATION: 08/20/2020 NEUROLOGY CONSULTATION NOTE CHIEF COMPLAINT: Encephalopathy or altered mental status. HISTORY OF PRESENT ILLNESS: A 65-year-old male with no known past medical history other than former alcohol use and hypertension, admitted from the Emergency Department yesterday after being found down with garbled speech and upward gaze. He was noted by EMS to be incontinent of urine. His blood glucose was in the 130s. He had no prior history of seizures. He has no history of trauma. He was given intramuscular Ativan en route. In the Emergency Department, he was following commands, but had generalized weakness. He had no headache, neck pain, chest pain, nausea, vomiting, back pain or extremity pain. He does have a remote history of alcohol use based off of the medical records. He denies any alcohol or drugs. He is a nonsmoker. He denied any fevers or chills. in the Emergency Department, he underwent CTA head and neck imaging, which showed no evidence of a large stroke or acute intracranial abnormality. There was question of asymmetry in the right sigmoid sinus, concerning for a possible cerebral venous thrombosis. The patient was loaded with Keppra in the Emergency Department and admitted for an EEG as well as further MRI brain and MRV imaging. Neurology was consulted upon admission. ALLERGIES: No known allergies. HOME MEDICATIONS: Hydrochlorothiazide 25 mg daily, lisinopril 40 mg daily. PAST MEDICAL HISTORY: Hypertension, hypokalemia, thrombocytopenia, alcohol withdrawal. PAST SURGICAL HISTORY: No recent or pertinent surgical history. SOCIAL HISTORY: Former alcohol user. Denies any illicit drug use. Nonsmoker. FAMILY HISTORY: Reviewed. No known family history. REVIEW OF SYSTEMS: All review of systems was performed and negative except as noted above in the HPI. PHYSICAL EXAMINATION: VITAL SIGNS: Blood pressure 112/83 mmHg, pulse is 75, respiratory rate 16, temperature is 36.4 degrees Celsius, oxygen saturation is 94% on room air. GENERAL: The patient appears normally developed and appears stated age. He is in no distress. HEENT: His head and face is normocephalic and atraumatic. Normal eyelids, normal conjunctivae. NECK: Supple. LUNGS: Normal respiratory effort. CARDIOVASCULAR: Pulses are normal. ABDOMEN: Nondistended. SKIN: No skin rash. He has a normal mood. NEUROLOGIC: He is awake, alert and oriented to person, place and time. Attention is normal. Knowledge is appropriate. Comprehension is intact. No aphasia, no dysarthria. Blinks to threat on confrontation. Pupils are symmetric. Extraocular muscles are intact. Facial sensation intact. No facial asymmetry. Intact hearing. Palate is symmetric. Good shoulder shrug. Tongue is midline. Gait examination deferred. He has no tremor or myoclonic jerks, no ataxia with [id number] testing. Sensation is intact to light touch. Muscle tone is normal. Muscle exam reveals 5/5 throughout with no focal weakness. Reflexes: Negative Tomas sign, no ankle clonus. DIAGNOSTIC TESTING AND LABORATORY VALUES: WBC 7.02, RBC 3.75, hemoglobin 13.1, platelet count 232. INR is 1.0. Sodium is 137, potassium 2.4, chloride 102, creatinine 0.56, phosphorus 2.4, magnesium 1.0. COVID-19 is negative. Influenza negative. RSV negative. Chest x-ray showed no acute process. Ill-defined 2 cm opacity in the left lateral lung, favored to be secondary to summation density. Pulmonary nodule considered less likely. IMAGING: Head CT noncontrast: Motion degraded exam without acute intracranial abnormality. No acute hemorrhage, midline shift, or intracranial mass or hydrocephalus. 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 No dissection, high-grade stenosis or arterial occlusion. There is asymmetric flow within the right transverse and sigmoid sinuses and posterior aspect of the superior sagittal sinus may represent mixing artifact versus cerebral venous sinus thrombosis. A routine EEG was performed this morning on 08/21/2020: This is a normal awake and drowsy routine EEG. Excessive beta activity as a normal variant can be seen as medication side effect due to benzodiazepines. ASSESSMENT AND PLAN: A 65-year-old male with a history of hypertension and remote alcohol use history, admitted with altered mental status, thought due to possibly a provoked seizure in the setting of multiple electrolyte abnormalities versus a possible cerebral venous thrombosis. Risk factors for cerebral venous sinus thrombosis certainly include dehydration. Agree with continuing Keppra 500 mg twice daily. Routine EEG was reviewed this morning, it showed excessive beta activity, likely due to benzodiazepine administration. There were no epileptiform discharges. In regards to the asymmetry noted in the CTA of the head and neck, recommend MRI brain with and without contrast as well as an MRV. This imaging is pending. If unable to perform MRI brain imaging would recommend a CTV. In regards to the numerous electrolyte abnormalities including low phosphorus and magnesium, we will defer to the primary team for replacement. Given the prior history of alcohol use, would start thiamine replacement as well as check a thiamine level, B12, and folic acid level. Neurology will continue to follow up. Of note, MRI imaging is pending. [facility]
[2020-08-21] MEDS: ASPIRIN 81 MG ECTAB PO SCH (10:50)
[2020-08-21] MEDS: levETIRAcetam 500 MG TAB PO SCH ×2 (13:00→20:54)
[2020-08-21] MEDS ORDERED: POTASSIUM PHOS 3 MMOL/1 ML INFUSION IV STA (13:27)
[2020-08-21] MEDS ORDERED: POTASSIUM PHOSPHATE 6 MMOL in 0.9 % SODIUM CHLORIDE 100 ML IV ONE (14:00)
[2020-08-21] MEDS: MAGNESIUM SULFATE / D5W 1 GM/100 ML BAG IV SCH ×3 (14:28→18:52)
--- NOTE | 2020-08-21 15:57 | Magnetic Resonance Report ---
MR VENOGRAM OF THE BRAIN CLINICAL HISTORY: Change in mental status. Abnormal CT angiogram. Clinical concern for venous sinus t hrombosis. COMPARISON STUDY: CT angiogram of the brain dated 08/20/2020. TECHNIQUE: Sagittal MR venogram of the brain is performed. 3-D reformats are created and assessed. IV contrast was not administered for this examination. FINDINGS: There is no evidence of dural sinus thrombosis. The superior sagittal sinus is widely paten t, as are the transverse and sigmoid sinuses. The filling defect within the right transverse sinus qu estion on the CT angiogram likely represent mixing artifact. The jugular veins are patent. IMPRESSION: Normal examination. Electronically signed by: Jose F Holbrook M.D. 08/21/2020 3:55 PM
--- NOTE | 2020-08-21 16:02 | Magnetic Resonance Report ---
MRI OF THE BRAIN WITHOUT CONTRAST CLINICAL HISTORY: Confusion. Dizziness. COMPARISON STUDY: Head CT and CTA of the head August 20, 2020. TECHNIQUE: Utilizing a 1.5 Sabine magnet and dedicated coil, multiplanar, multiecho imaging of the bra in was performed without IV contrast. FINDINGS: This exam is moderately compromised by motion artifact. There are no areas of restricted di ffusion to suggest acute infarct. No acute intracranial hemorrhage, midline shift or mass effect is p resent. Ventricular system is unremarkable. Basal cisterns are patent. There are no extra-axial colle ctions. No intracranial masses are identified on this unenhanced study. Calvarial signal is grossly n ormal. There is mild ethmoid sinus mucosal thickening. Trace fluid within the left mastoid air cells is present. There is mild atrophy. IMPRESSION: Exam moderately compromised by motion artifact. No acute intracranial findings identified. ACT 112: Negative or not required by law. Electronically signed by: Umer Woods M.D. 08/21/2020 4:00 PM
--- NOTE | 2020-08-21 23:21 | Hospitalist Progress Note ---
Date of Service August 21, 2020 Assessment & Plan (1) Seizure-like activity: Noted with confusion/altered mental status: Metabolic encephalopathy possible in setting of electrolyte imbalance causing seizure Presented with with seizure-like activity, garbled speech, unresponsiveness, with urinary incontinence No prior history of seizure, Rule out acute stroke, illicit drug/alcohol withdrawal Significant electrolyte imbalance noted: Low mag, potassium, phosphorus, ordered for IV replacement, repeat lab in the afternoon Appreciate input from neurology, recommends to continue with the p.o. Keppra 500 mg twice daily. Patient does not have any more seizure episodes since admission Electrolytes have been corrected Patient is asked not to drive for next 3 months, DMV form will be filled up, patient is agreeable needs to be seizure-free for 90 days to have trial fluids to be restored (2) Abnormal CT of brain: (3) Electrolyte imbalance: pt noted to have severely hypokalemic, low magnesium, hyponatremic Replacement ordered, repeat labs in a.m. Code status: Full code DVT prophylaxis: Disposition: Expected to be discharged home when medically stable PT OT evaluation prior to discharge, Follows with Dr. Gunter at [facility] Will need to establish care with [facility] neurology Admission and Anticipated Discharge Date Admission Date: August 20, 2020 Subjective More awake and alert today, denies of any headache no blurred vision, no nausea vomiting Seizure-like activity, no fever chills no cough no shortness of breath Does not recall the events that led him to get admitted, but aware of that he is being in hospital getting treatment Able to answer question appropriately, no slurred speech no focal deficit Review of Systems Review of Systems: All systems reviewed & are unremarkable except as noted in Subjective Physical Exam Physical Exam: Physical exam: General: Still remains a little bit disoriented, postictal, awake, oriented to person only HEENT: Normal visuals failed, pupils equal reactive to light Heart: Regular S1-S2, no carotid bruit, no JVD, no lower extremity edema Lungs: Clear to auscultate, no wheeze or rales Abdomen: Soft nontender, no organomegaly Extremity: No cyanosis, no deformity, Neuro: No focal neurological deficit normal speech, tongue midline, muscle strength both upper and lower extremity, normal sensation, no seizure-like activity Psych: Remains confused, alert and awake, oriented to person only, Results & Data Results & Data ([facility]) Vital Signs (Past 12 Hours) Vital Signs Temp Pulse Resp BP BP Pulse Ox 08/21/20 23:10 36.7 C 67 18 116/66 95 08/21/20 19:19 37.0 C 82 18 93/56 L 96 08/21/20 14:00 36.3 C L 79 18 135/79 95
[2020-08-22 06:54] LABS: BUN Creatinine Ratio 15.7 (10-20); Calcium 8.2 mg/dl (8.5-10.1); Creatinine Clr Calc Pharmacy 147.3 ml/min; Est GFR (African American) 135.9; Est GFR (Non-African American) 117.3; Magnesium 1.5 mg/dl (1.8-2.4); Phosphorus 2.4 mg/dl (2.5-4.9); Potassium 2.6 mmol/L (3.5-5.1)
[2020-08-22] MEDS: levETIRAcetam 500 MG TAB PO SCH ×2 (08:21→09:30)
[2020-08-22] MEDS: ASPIRIN 81 MG ECTAB PO SCH (08:21)
[2020-08-22] MEDS ORDERED: POTASSIUM CHLORIDE CRTAB 20 MEQ TABCR PO STA (12:13)
[2020-08-22] MEDS ORDERED: POTASSIUM PHOS 3 MMOL/1 ML INFUSION IV STA (12:13)
--- NOTE | 2020-08-22 12:29 | Progress Notes ---
DATE: 08/20/2020 NEUROLOGY PROGRESS NOTE CHIEF COMPLAINT: Seizures/altered mental status. SUBJECTIVE: The patient was admitted 2 days ago for a witnessed seizure like event associated with postictal confusion. The patient has now returned back to baseline with improvement in his mental status. He had no acute events overnight or yesterday. He was feeling well, hoping to go home. MRI of the brain and MRV were completed. PHYSICAL EXAMINATION: VITAL SIGNS: Blood pressure 126/76, pulse is 88, respiratory rate 18, temperature is 36.7 degrees Celsius, oxygen saturation is 97% on room air. GENERAL: The patient appears normally developed and appears stated age. HEENT: Normocephalic and atraumatic. Normal eyelids, normal conjunctivae. NECK: Supple. LUNGS: Normal respiratory effort. CARDIOVASCULAR: Normal cardiac pulses. ABDOMEN: Nondistended. SKIN: He has no skin rash. PSYCHIATRIC: He has a normal mood and affect. NEUROLOGIC: He is awake, alert, oriented to person, place and time. His attention is normal. Knowledge is appropriate. Comprehension is intact. Speech is clear, no dysarthria. He blinks to threat on confrontation. His pupils are symmetric. His extraocular muscles are intact. Facial sensation is normal. He has no facial asymmetry. Intact hearing. Palate is symmetric. Good shoulder shrug. Tongue is midline. Gait evaluation deferred. He has no tremor or myoclonic jerks. No ataxia with [id number] testing. Sensation is intact to light touch. Muscle tone is normal. Muscle exam is 5/5 throughout in the upper and lower extremities. Reflexes, he has no ankle clonus. Toes are downgoing bilaterally with a negative Tomas sign. DIAGNOSTIC TESTING AND LABORATORY VALUES: WBC 7.02, hemoglobin 13.1, platelet count 232. Sodium is 138, potassium is 2.6, which remains low, chloride is 104, creatinine 0.48, BUN is 8. Calcium is low at 8.2, phosphorus is low at 2.4, magnesium is low at 1.5. IMAGING: MRI of the brain, exam moderately compromised due to motion artifact. No areas of restricted diffusion to suggest ischemic stroke. No intracranial hemorrhage, no mass. MRV or venography normal examination. No evidence of a dural sinus thrombosis. ASSESSMENT AND PLAN: A 65-year-old male with a history of hypertension and alcohol use history, admitted 2 days ago for altered mental status due to a postictal confusion from a seizure. Upon admission, the patient noted to have multiple electrolyte abnormalities including hypomagnesium, hypophosphatemia and hypokalemia. Routine EEG showed excessive beta activity, which was a normal variant likely due to the administration of benzodiazepines. MRI of the brain and MRV showed no acute intracranial findings as well as no evidence of cerebral venous thrombosis. Recommend to continue Keppra 500 mg twice daily for seizure prophylaxis. The patient is currently back to baseline. We will defer to primary hospitalist team for correction of his electrolytes. [place] State law requires that the patient is not able to drive for 6 months after a seizure. Recommend outpatient Neurology followup in 8 weeks. Okay to discharge the patient from a Neurology standpoint. Please contact me with any additional questions or concerns. JHOANA
[2020-08-22] MEDS: MAGNESIUM SULFATE / D5W 1 GM/100 ML BAG IV SCH ×2 (12:39→14:41)
[2020-08-22] MEDS ORDERED: POTASSIUM PHOSPHATE 6 MMOL in 0.9 % SODIUM CHLORIDE 100 ML IV ONE (13:00)
--- NOTE | 2020-08-22 14:41 | Discharge Summary ---
Date of Service August 22, 2020 Admission HPI Per Admitting Provider This is a 67-year-old male with no significant past medical history, Brought to ER with altered mental status Patient was last known well was around 9 AM Then was found on floor with garbled speech and upward gaze Was incontinent of urine EMS arrived, BSG was 130s, patient was tachycardic in 130s, pulse ox was 99/100% in room air No prior history of seizure In the ER patient was awake, but appears to be postictal, complains of generalized weakness Remote history of alcohol abuse: Denies of any recent alcohol intake or drug abuse, Patient noted to be in significant electrolyte imbalance, with marked hypokalemia, low magnesium 0.5, hyponatremia CT head noncontrast no acute change, CTA of head and neck suggestive of sigmoid venous thrombosis, MRI MRV of brain ordered ER attending spoke with on-call neurologist Dr. Rose Patient will be treated with IV Keppra 1 g load If MRI of brain confirms evidence of intracranial venous sinus thrombosis, patient will be started with IV heparin later transitioned to Coumadin for long- term anticoagulation Principal Diagnosis SEIZURE EPISODE ELECTROLYTE ABNORMALITY HX OF ALCOHOL ABUSE Discharge Exam Physical exam: General: No acute distress, alert awake oriented x3 HEENT: PERRLA, EOMI, Heart: Regular S1-S2, no carotid bruit, no JVD, no lower extremity edema Lungs: Clear to auscultate, no wheeze or rales Abdomen: Soft nontender, no organomegaly Extremity: No cyanosis, no deformity, normal strength 5 out of 5 with upper and lower Neuro: No focal neurological deficit normal speech, normal visual field, Motor strength : normal both upper and lower extremity, sensation intact Psych: Alert awake oriented x3, normal affect Discharge Data Allergies Allergy/AdvReac Type Severity Reaction Status Date / Time No Known Allergies Allergy Unverified 06/11/13 10:56 Consultations 08/20/20 11:07 Consult Neurology Routine 08/20/20 11:18 ED Decision to Admit Stat Ordered Studies 08/20/20 09:40 CT angio head w con Stat CT angio neck with con Stat CT head/brain wo con Stat 08/21/20 11:08 MR brain wo con Stat MR venography head wo con Stat Hospital Course (1) Seizure-like activity: Scented with confusion/altered mental status: Metabolic encephalopathy possible in setting of electrolyte imbalance causing seizure Presented with with seizure-like activity, garbled speech, unresponsiveness, with urinary incontinence No prior history of seizure, CTA of head negative CT head noncontrast, MRI of brain shows no evidence of acute stroke Significant electrolyte imbalance noted: Possible causing metabolic encephalopathy/seizure episode Low mag low phosphorus and low potassium corrected by both intravenous and p.o. supplement Appreciate input from neurology, recommends to continue with the p.o. Keppra 500 mg twice daily. 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 Patient did not had any focal neurological deficit no headache no visual disturbance MRI and MRV of brain shows no evidence of intracranial venous thrombosis, no indication for anticoagulation (3) Electrolyte imbalance: pt noted to have severely hypokalemic, low magnesium, hyponatremic Possible secondary to poor p.o. intake, patient reports he had male at [facility] 4 days back, after that he started to experience nausea vomiting diarrhea similar to food poisoning, was not able to keep down any food or drink Electrolytes are replaced, Patient is stable to be discharged home, repeat lab work ordered in a week Code status: Full code Disposition: Stable to be discharged home today. Patient will be seen at neurology clinic in 8 weeks. Total Time Total Time Spent Total Time Spent (In Minutes): 35 minutes Total Time Includes: Examination of the Patient, Discharge Planning, Medication Reconciliation and Communication With Other Providers Discharge Plan Discharge Items Patient Disposition: Home - Self-Care Reason For Visit: ALTERED MENTAL STATUS Discharge Diagnosis: SEIZURE EPISODE ELECTROLYTE ABNORMALITY HX OF ALCOHOL ABUSE Activity: Per Instructions section Driving/Machine Use: DO NOT DRIVE FOR 6 MONTHS Non-emergency contact: Primary Care Provider Call non-emergency contact if: you have any medication questions Follow-up/Referrals: Farideh Sandoval DO [Primary Care Provider] - (Date & Time 08/28/2020 11:00 AM Provider Farideh Sandoval DO Department [facility] ) Eder Palmer, [Physician] - (Neurology follow up in 8 weeks ) Diet: Heart Healthy Addtl Attending Provider Instructions: Please take all medications as instructed on discharge list below. It is recommended that you follow-up with your primary care physician within 1-2 weeks of hospital discharge to ensure you are still doing well. Please call if you have any questions or problems. You can reach a [facility] hospitalist on duty at [facility] 24 hours a day by calling [phone] [facility] Provider Instructions: [place] State law requires that the no driving for 6 months after a seizure. Neurology follow up in 8 weeks Do not take Hydrocholorthiazide Lab work : Basic metabolic panel , Magnesium level , phosphorus level in 1 week It is very important to have absolute abstinence from alcohol please follow up with your family physician for referral to Alcohol addiction /counselling Pending Studies at Discharge: No Stand-Alone Forms: My [facility], Smoking Cessation Medications and DC Order Prescriptions: New levetiracetam [Keppra] 500 mg Tablet 500 mg PO BID 30 Days Qty: 60 RF: 3 aspirin 81 mg Tablet,Delayed Release (Dr/Ec) 81 mg PO DAILY 30 Days Qty: 30 RF: 3 potassium chloride [Klor-Con M20] 20 mEq Tablet,Er Particles/Crystals 20 meq PO QAM 30 Days Qty: 30 RF: 0 magnesium oxide 420 mg tablet 420 mg PO DAILY Qty: 10 RF: 0 Continued lisinopril 40 mg tablet 40 mg PO DAILY RF: 0 Discontinued hydrochlorothiazide 25 mg tablet 25 mg PO DAILY RF: 0 Discharge Orders: Discharge Order (Routine); Ordered 08/22/20 Ordered By: Halina Marx/Other Patient Handouts: Alcoholism: Myths and Facts, Alcoholism Resources, Alcoholism: Getting Help, Alcohol Withdrawal: What to Expect, Addiction Ask These Questions Admission Data Admit Date/Time: 08/20/20 11:07 Attending Provider: Halina Hart Admit Provider: Halina Hart Primary Care Provider: Farideh Sandoval Other Providers: Eder Palmer ; Halina Hart Other Interventions: Discharge Summary Assessment (RN) Last Done: 08/22/20 14:44
[2020-08-23] MEDS ORDERED: POTASSIUM CHLORIDE CRTAB 20 MEQ TABCR PO SCH (09:00)
== END 2020-08-22 17:15 | disposition home or self-care (01) | DRG 640 ==
LOC: ED 09:48 → 2N 11:07